=== PATIENT | male | born 1945 | race Caucasian/White ===

== ENCOUNTER 2016-12-02 11:53 | Outpatient (CLI) | payer MEDICARE, OTHER | END 2016-12-02 11:54 | disposition home or self-care (01) | DX: I25.10 Atherosclerotic heart disease of native coronary artery without angina pectoris (principal); I77.9 Disorder of arteries and arterioles, unspecified; R94.31 Abnormal electrocardiogram [ECG] [EKG] | CPT/HCPCS: 78452; 93017; A9500 ==

== ENCOUNTER 2017-06-03 11:46 | Outpatient (CLI) | payer MEDICARE, OTHER ==
[2017-06-03 12:21] LABS: ALBUMIN/GLOBULIN RATIO 1.1 (1.0-2.2); BILIRUBIN,TOTAL 1.5 mg/dL (0.2-1.0); BUN - BLOOD UREA NITROGEN 21 mg/dL (6-20); CARBON DIOXIDE - CO2 27 mmol/L (21-32); CHLORIDE 99 mmol/L (101-111); CREATININE 0.8 mg/dL (0.6-1.2); GFR - MDRD 95 (>89); GLUCOSE 142 mg/dL (70-100); SODIUM 134 mmol/L (135-145); TOTAL PROTEIN 7.8 g/dL (6.7-8.2)
[2017-06-03 13:11] LABS: THYROID STIMULATING HORMONE 0.1 uIU/mL (0.34-5.60)
== END 2017-06-03 11:47 | disposition home or self-care (01) ==
LOC: LAB 11:46
PROVIDERS: ATTEND Family Medicine
DX: I65.29 Occlusion and stenosis of unspecified carotid artery (principal); I10 Essential (primary) hypertension; I25.10 Atherosclerotic heart disease of native coronary artery without angina pectoris; C76.0 Malignant neoplasm of head, face and neck; E78.5 Hyperlipidemia, unspecified
CPT/HCPCS: 36415; 80053; 84439; 84443

== ENCOUNTER 2017-11-17 13:14 | Outpatient (CLI) | payer MEDICARE, OTHER | END 2017-11-17 13:15 | disposition EMS.NT | LOC: EMS 13:14 | PROVIDERS: ATTEND Surgery | DX: R06.00 Dyspnea, unspecified (principal) ==

== ENCOUNTER 2018-01-20 11:10 | Outpatient (CLI) | payer MEDICARE, OTHER ==
[2018-01-20 11:52] LABS: BASOPHILS # (AUTO) 0.1 10^3/uL (0.0-0.1); BASOPHILS % (AUTO) 1.1 %; EOSINOPHILS # (AUTO) 0.4 10^3/uL (0.0-0.7); EOSINOPHILS % (AUTO) 5.7 %; HGB - HEMOGLOBIN 13.6 g/dL (14.0-18.0); LYMPHOCYTES % (AUTO) 14.6 %; MEAN CORPUSCULAR HEMOGLOBIN 30.3 pg (27.0-31.0); MEAN CORPUSCULAR HGB CONC 34.8 g/dL (32.0-36.0); MEAN CORPUSCULAR VOLUME 87.1 fL (80.0-94.0); MEAN PLATELET VOLUME 7.6 fL (7.4-11.4); MONOCYTES # (AUTO) 0.6 10^3/uL (0.0-1.0); MONOCYTES % (AUTO) 8.8 %; NEUTROPHILS # (AUTO) 4.9 10^3/uL (1.5-6.6); NEUTROPHILS % (AUTO) 69.8 %; PLT - PLATELET COUNT 256 10^3/uL (130-450); RED CELL DISTRIBUTION WIDTH 12.9 % (12.0-15.0)
[2018-01-20 12:07] LABS: ALBUMIN 3.3 g/dL (3.2-5.5); ALBUMIN/GLOBULIN RATIO 0.7 (1.0-2.2); ALKALINE PHOSPHATASE 84 IU/L (42-121); ALT ALANINE AMINOTRANSFERASE 62 IU/L (10-60); AST ASPARTATE AMINOTRANSFERASE 43 IU/L (10-42); BILIRUBIN,TOTAL 0.9 mg/dL (0.2-1.0); BUN - BLOOD UREA NITROGEN 15 mg/dL (6-20); CALCIUM 9.1 mg/dL (8.5-10.3); CARBON DIOXIDE - CO2 26 mmol/L (21-32); CHLORIDE 99 mmol/L (101-111); CHOLESTEROL 137 mg/dL; CREATININE 0.8 mg/dL (0.6-1.2); GFR - MDRD 95 (>89); GLUCOSE 150 mg/dL (70-100); HDL CHOLESTEROL 45 mg/dL; LDL CHOLESTEROL,CALCULATED 79 mg/dL; LDL/HDL RATIO 1.8 (<3.6); SODIUM 137 mmol/L (135-145); TOTAL PROTEIN 7.8 g/dL (6.7-8.2); VLDL CHOLESTEROL 13 mg/dL
[2018-01-20 12:08] LABS: HB2 TOTAL 14.8 g/dL; HEMOGLOBIN A1C 0.85 g/dL; HEMOGLOBIN A1C % 7.4 % (4.6-6.2)
[2018-01-20 13:34] LABS: THYROID STIMULATING HORMONE < 0.08 uIU/mL (0.34-5.60)
[2018-01-20 14:09] LABS: FREE T4 (FREE THYROXINE) 1.52 ng/dL (0.58-1.64)
== END 2018-01-20 11:11 | disposition home or self-care (01) ==
LOC: LAB 11:10
PROVIDERS: ATTEND Family Medicine
DX: R94.5 Abnormal results of liver function studies (principal); I65.29 Occlusion and stenosis of unspecified carotid artery; I10 Essential (primary) hypertension; I25.10 Atherosclerotic heart disease of native coronary artery without angina pectoris
CPT/HCPCS: 36415; 80053; 80061; 83036; 83721; 84439; 84443; 85025

== ENCOUNTER 2019-02-20 14:16 | Outpatient (CLI) | payer MEDICARE, OTHER ==
[2019-02-20 15:24] LABS: THYROID STIMULATING HORMONE 0.37 uIU/mL (0.34-5.60)
[2019-02-20 15:26] LABS: FREE T4 (FREE THYROXINE) 1.11 ng/dL (0.58-1.64)
== END 2019-02-20 14:17 | disposition home or self-care (01) ==
LOC: LAB 14:16
PROVIDERS: ATTEND Internal Medicine
DX: E03.9 Hypothyroidism, unspecified (principal)
CPT/HCPCS: 36415; 84439; 84443

== ENCOUNTER 2019-05-28 12:36 | Outpatient (CLI) | payer MEDICARE, OTHER ==
[2019-05-28 13:20] LABS: BASOPHILS # (AUTO) 0.1 10^3/uL (0.0-0.1); BASOPHILS % (AUTO) 0.7 %; EOSINOPHILS # (AUTO) 0.3 10^3/uL (0.0-0.7); EOSINOPHILS % (AUTO) 4.7 %; HGB - HEMOGLOBIN 14.7 g/dL (14.0-18.0); LYMPHOCYTES # (AUTO) 0.9 10^3/uL (1.5-3.5); MEAN CORPUSCULAR HEMOGLOBIN 31.5 pg (27.0-31.0); MEAN CORPUSCULAR HGB CONC 34.7 g/dL (32.0-36.0); MEAN CORPUSCULAR VOLUME 90.8 fL (80.0-94.0); MEAN PLATELET VOLUME 9.1 fL (7.4-11.4); MONOCYTES # (AUTO) 0.6 10^3/uL (0.0-1.0); MONOCYTES % (AUTO) 8.7 %; NEUTROPHILS # (AUTO) 4.9 10^3/uL (1.5-6.6); NEUTROPHILS % (AUTO) 72.6 %; PLT - PLATELET COUNT 185 10^3/uL (130-450); RED BLOOD COUNT 4.67 10^6/uL (4.70-6.10); RED CELL DISTRIBUTION WIDTH 13.4 % (12.0-15.0); WHITE BLOOD COUNT 6.8 x10^3/uL (4.8-10.8)
[2019-05-28 13:24] LABS: BILIRUBIN,URINE NEGATIVE (NEGATIVE); GLUCOSE, URINE (UA) NEGATIVE (NEGATIVE); KETONES,URINE (UA) NEGATIVE (NEGATIVE); LEUKOCYTE ESTERASE, URINE NEGATIVE (NEGATIVE); NITRITE,URINE NEGATIVE (NEGATIVE); OCCULT BLOOD,URINE NEGATIVE (NEGATIVE); PROTEIN,URINE NEGATIVE (NEGATIVE); UROBILINOGEN,URINE 0.2 (NORMAL) E.U./dL (NORMAL)
[2019-05-28 13:25] LABS: CLARITY,URINE CLEAR (CLEAR)
[2019-05-28 13:40] LABS: CREATININE,URINE 31.8 mg/dL
[2019-05-28 13:41] LABS: HEMOGLOBIN A1C 0.7 g/dL; HEMOGLOBIN A1C % 6.2 % (4.6-6.2)
[2019-05-28 13:42] LABS: ALBUMIN 4.5 g/dL (3.2-5.5); ALBUMIN/GLOBULIN RATIO 1.2 (1.0-2.2); ALKALINE PHOSPHATASE 86 IU/L (42-121); ALT ALANINE AMINOTRANSFERASE 34 IU/L (10-60); AST ASPARTATE AMINOTRANSFERASE 45 IU/L (10-42); BILIRUBIN,TOTAL 1.7 mg/dL (0.2-1.0); BUN - BLOOD UREA NITROGEN 15 mg/dL (6-20); CALCIUM 9.1 mg/dL (8.5-10.3); CARBON DIOXIDE - CO2 24 mmol/L (21-32); CHLORIDE 100 mmol/L (101-111); CHOL/HDL RATIO 2.1 (<5.0); CHOLESTEROL 206 mg/dL; CK- CREATINE KINASE 777 IU/L (22-269); CREATININE 0.8 mg/dL (0.6-1.2); GFR - MDRD 94 (>89); GLUCOSE 130 mg/dL (70-100); HDL CHOLESTEROL 99 mg/dL; SODIUM 138 mmol/L (135-145); TOTAL PROTEIN 8.2 g/dL (6.7-8.2)
[2019-05-28 14:54] LABS: MICROALBUM/CREATININE RATIO,UR 31.8 ug/mg (<30.0); MICROALBUMIN,URINE < 0.3 mg/dL (0-300.0)
== END 2019-05-28 12:37 | disposition home or self-care (01) ==
LOC: LAB 12:36
PROVIDERS: ATTEND Internal Medicine
DX: Z79.899 Other long term (current) drug therapy (principal); I25.10 Atherosclerotic heart disease of native coronary artery without angina pectoris; E03.9 Hypothyroidism, unspecified; Z12.5 Encounter for screening for malignant neoplasm of prostate; Z13.6 Encounter for screening for cardiovascular disorders; I10 Essential (primary) hypertension; I77.9 Disorder of arteries and arterioles, unspecified; E80.6 Other disorders of bilirubin metabolism; E11.9 Type 2 diabetes mellitus without complications; C32.9 Malignant neoplasm of larynx, unspecified
CPT/HCPCS: 36415; 80061; 81003; 82043; 82550; 82570; 83036; G0103; 80053; 81001; 83721; 84153; 84443; 85025; 87086

== ENCOUNTER 2019-09-28 16:37 | Outpatient (CLI) | payer MEDICARE, OTHER ==
--- NOTE | 2019-09-29 13:35 | MRI Report ---
Reason: MASS OF RT SHOULDER JOINT Procedure Date: 09/28/2019 Accession Number: [id number] / [id number] Procedure: MRI - Shoulder RT W/O CPT Code: Final Report FULL RESULT: EXAM: RIGHT SHOULDER MRI WITHOUT CONTRAST EXAM DATE: 09/28/2019 05:39 PM. CLINICAL HISTORY: Mass of right shoulder joint. COMPARISON: [facility] 03/15/2019 3:39 PM. TECHNIQUE: Multiplanar, multisequence T1-weighted and fluid-sensitive sequences of the shoulder without contrast. Other: None. FINDINGS: Rotator cuff: Full-thickness tears of the supraspinatus and infraspinatus measuring approximately 5 cm anteroposterior and 4 cm medial to lateral. Severe atrophy of the infraspinatus with complete fatty replacement. Mild atrophy involving supraspinatus and upper fibers of the subscapularis. Long head biceps tendon: No intact long head biceps tendon identified within the field of view. Labrum: Degenerative appearance. Ossification within the superior labrum. Bones and articular surfaces: Mild cartilage thinning and irregularity within the glenohumeral joint. Humeral head marginal osteophytes. Calcified or ossified loose bodies in the subscapularis recess and adjacent to the posterior superior margin of the glenohumeral articulation. Acromioclavicular joint: Severe degenerative change. Osteophyte formation. Lobulated high T2 signal structure superior to the distal clavicle measures approximately 3.4 cm anteroposterior, 2.5 cm medial to lateral and 2 cm craniocaudad. Suspicious for ganglion cyst. IMPRESSION: 1. High T2 signal lobulated mass superior to the distal clavicle suspicious for ganglion cyst. 2. 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 3. Severe infraspinatus atrophy and fatty replacement. 4. 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 [facility]
== END 2019-09-28 16:38 | disposition home or self-care (01) ==
LOC: DI 16:37
PROVIDERS: ATTEND Orthopaedic Surgery Sports Medicine
DX: M25.811 Other specified joint disorders, right shoulder (principal); M75.101 Unspecified rotator cuff tear or rupture of right shoulder, not specified as traumatic; M19.011 Primary osteoarthritis, right shoulder

== ENCOUNTER 2019-12-20 13:18 | Outpatient (CLI) | payer MEDICARE, OTHER ==
[2019-12-20 13:48] LABS: ALBUMIN 4.2 g/dL (3.2-5.5); ALBUMIN/GLOBULIN RATIO 0.9 (1.0-2.2); ALKALINE PHOSPHATASE 104 IU/L (42-121); ALT ALANINE AMINOTRANSFERASE 24 IU/L (10-60); AST ASPARTATE AMINOTRANSFERASE 33 IU/L (10-42); BILIRUBIN,TOTAL 1.3 mg/dL (0.2-1.0); BUN - BLOOD UREA NITROGEN 17 mg/dL (6-20); CALCIUM 8.9 mg/dL (8.5-10.3); CARBON DIOXIDE - CO2 27 mmol/L (21-32); CHLORIDE 97 mmol/L (101-111); CHOL/HDL RATIO 2.1 (<5.0); CHOLESTEROL 183 mg/dL; CREATININE 0.8 mg/dL (0.6-1.2); GFR - MDRD 94 (>89); GLUCOSE 131 mg/dL (70-100); HDL CHOLESTEROL 87 mg/dL; SODIUM 138 mmol/L (135-145); TOTAL PROTEIN 8.7 g/dL (6.7-8.2)
== END 2019-12-20 13:19 | disposition home or self-care (01) ==
LOC: LAB 13:18
PROVIDERS: ATTEND Internal Medicine Cardiovascular Disease
DX: I25.10 Atherosclerotic heart disease of native coronary artery without angina pectoris (principal); I65.23 Occlusion and stenosis of bilateral carotid arteries
CPT/HCPCS: 36415; 80053; 80061; 83721

== ENCOUNTER 2020-07-20 18:52 | Outpatient (CLI) | payer MEDICARE, OTHER | END 2020-07-20 18:53 | disposition E | LOC: EMS 18:52 | PROVIDERS: ATTEND Surgery ==